=== PATIENT | female | born 1980 ===

== ENCOUNTER → 2021-11-25 15:39 | Outpatient (CLI) | payer OTHER, SELFPAY ==
--- NOTE | ~2021-11-25 | XR_ITS ---
EXAMINATION: XR wrist LT min 3V DATE: 11/25/2021 16:20 INDICATION: Left wrist pain, initial encounter TECHNIQUE: Posteroanterior, ulnar deviation, oblique, and lateral views of the left wrist were obtain ed. COMPARISON: None available FINDINGS: There is an acute, traumatic, closed, transverse, nondisplaced fracture in the medial base of the fifth metacarpal. Bone alignment at the wrist is normal. No wrist fracture is identified. The soft tissues are unremarkable. IMPRESSION: 1. No acute osseous abnormality of the wrist. 2. Acute fracture at the medial base of the fifth metacarpal. Reviewed, dictated and finalized at location B.
--- NOTE | ~2021-11-25 | XR_ITS ---
EXAMINATION: XR hand LT min 3V INDICATION: Right hand pain, initial encounter TECHNIQUE: Three views right hand are obtained. COMPARISON: None available FINDINGS: There is an acute, traumatic, closed, transverse, nondisplaced fracture in the medial base of the fifth metacarpal. No additional acute osseous findings are evident. The joint spaces are eddie l. The soft tissues are unremarkable. IMPRESSION: 1. Acute nondisplaced fracture in the medial base of the fifth metacarpal. Reviewed, dictated and finalized at location B.
== END ==
PROVIDERS: Visit Provider Physician Assistant
DX: S62.347A Nondisplaced fracture of base of fifth metacarpal bone, left hand, initial encounter for closed fracture (principal); X58.XXXA Exposure to other specified factors, initial encounter
CPT/HCPCS: 73110; 73130